=== PATIENT | female | born 1995 | race Caucasian/White ===

== ENCOUNTER 2024-10-31 04:25 | Emergency (ER) | payer OTHER, SELFPAY ==
--- NOTE | ~2024-10-31 | XR_ITS ---
CLINICAL HISTORY: Fecal impaction 1 view abdomen Comparison: None Findings: No pneumoperitoneum or pneumatosis. Moderate fecal retention within the colon. No abnormal calcifications. No acute fractures. IMPRESSION: Moderate colonic fecal retention. No small bowel obstruction or free air. This document has been electronically signed by: Lauro Cheung MD on 10/31/2024 06:38:49
[2024-10-31 04:30] VITALS: BP 122/74; PULSE 84; O2SAT 98
[2024-10-31 04:36] VITALS: BP 131/90; PULSE 83; RESP 16; TEMP 37.2; O2SAT 98; BMI 22.8
[2024-10-31 05:01] LABS: MANUAL DIFF FLAG NO
[2024-10-31 05:02] LABS: Basophils Absolute Auto 0.1 X10*3/uL (0.0-0.2); Basophils Percent Auto 0.5 % (0-2); Eosinophils Absolute Auto 0.7 X10*3/uL (0.0-0.4); Eosinophils Percent Auto 4.6 % (0-4); Hematocrit 48.5 % (37.0-47.0); Hemoglobin 16.2 g/dl (12.0-16.0); Imm Gran Abs Auto 0.05 X10*3/uL (0.00-0.03); Imm Gran Pct Auto 0.4 % (0.0-0.4); Lymphocytes Absolute Auto 2.6 X10*3/uL (1.2-4.9); Lymphocytes Percent Auto 18.4 % (20-40); Mean Corpuscular HGB Conc 33.4 g/dl (31.0-35.0); Mean Corpuscular Hemoglobin 28.5 pg (27.0-33.0); Mean Corpuscular Volume 85.4 fL (80.0-98.0); Mean Platelet Volume 9.4 fL (9.4-12.3); Monocytes Absolute Auto 1.1 X10*3/uL (0.1-1.2); Monocytes Percent Auto 7.5 % (2-11); Neutrophils Absolute Auto 9.7 x10*3/uL (2.0-8.3); Neutrophils Percent Auto 68.6 % (45-73); Platelet Count 360 X10*3/uL (160-400); Red Blood Count 5.68 X10*6/uL (4.20-5.50); Red Cell Distribution Width 14.1 % (11.0-16.0); White Blood Count 14.1 X10*3/uL (4.8-10.8)
--- NOTE | 2024-10-31 05:02 | ED_ITS ---
HPI - Abdominal Pain General Chief Complaint: Abdominal Pain Stated Complaint: ABDOMINAL PAIN Time Seen by Provider: 10/31/24 05:02 Source: patient Mode of arrival: ambulatory Limitations: no limitations History of Present Illness ED Provider: HPI narrative: Patient has chronic constipation comes here for diffuse abdominal discomfort had small bowel movement 2 days no nausea no vomiting no urinary complaints does have back pain also says that history of colitis from constipation once before no blood in his stool no fever no chills Related Data Previous Rx's ?Medication ?Instructions ?Recorded polyethylene glycol 3350 17 17 g PO DAILY #510 grams 10/31/24 gram/dose oral powder (Miralax) sennosides 8.6 mg tablet (Senokot) 8.6 mg PO BEDTIME PRN constipation 10/31/24 #30 tabs Allergies Allergy/AdvReac Type Severity Reaction Status Date / Time No Known Allergies Allergy Unverified 10/31/24 04:39 Review of Systems Review of Systems Yes all other systems are reviewed and are negative [facility] Social History Social History Alcohol intake: current Alcohol intake frequency: holidays/special occasions only Alcohol type: hard liquor Smoked in Last 30 Days: Yes Substance Use Type: Crack/Cocaine Substance Use Frequency: Occasionally Substance Use Frequency Other:: 2 Last Used Substance: Weeks (ago) Advance Directives: No Advance Directives Information Provided: Yes Do you have a plan to hurt others: No Plan Patient : No Physical Exam ED Vital Signs: Vital Signs - 24 hr 10/31/24 04:36 10/31/24 06:50 Temperature 98.9 F 98.9 F Pulse Rate 83 83 Respiratory Rate 16 16 Blood Pressure 131/90 H 131/90 H Pulse Oximetry 98 98 Oxygen Delivery Method Room Air Room Air BMI result Body Mass Index 22.8 Appearance: Alert. Oriented X3. No acute distress. Eyes: No pallor or icterus ENT: Pharynx normal. Oral Mucosa moist Neck: Normal inspection. Neck supple. CVS: Normal heart rate and rhythm. Pulses normal. Respiratory: No respiratory distress. Equal air entry bilateral, no wheezing/rales/rhonchi Abdomen: Soft and mild diffuse tenderness. Bowel sounds are present, no mass palpable, no CVA tenderness Skin: Skin warm and dry. Normal skin color. Normal skin turgor. Extremities: No lower extremity edema. No calf tenderness Neuro: Oriented X 3. No motor deficit. Medical Decision Making Medical Decision Making [facility] Narrative: Patient has diffuse abdominal discomfort with moderate amount of stool with history of constipation will advised to take stool softener follow up as outpatient no focal tenderness no tenderness in right lower quadrant patient has been eating okay no vomiting no fever unlikely appendicitis/ovarian cyst diverticulitis Differential Diagnosis Differential Diagnoses: The differential diagnosis associated with the presentation includes Lab Data [facility] Lab Attestation statement: I reviewed the patient's lab results. 10/31/24 04:57 Labs: Lab Results 10/31/24 10/31/24 Range/Units 04:57 05:49 WBC 14.1 H (4.8-10.8) X10*3/uL RBC 5.68 H (4.20-5.50) X10*6/uL Hgb 16.2 H (12.0-16.0) g/dl Hct 48.5 H (37.0-47.0) % MCV 85.4 (80.0-98.0) fL MCH 28.5 (27.0-33.0) pg MCHC 33.4 (31.0-35.0) g/dl RDW 14.1 (11.0-16.0) % Plt Count 360 (160-400) X10*3/uL MPV 9.4 (9.4-12.3) fL Immature Gran % (Auto) 0.4 (0.0-0.4) % Neut % (Auto) 68.6 (45-73) % Lymph % (Auto) 18.4 L (20-40) % [place] % (Auto) 7.5 (2-11) % Eos % (Auto) 4.6 H (0-4) % Baso % (Auto) 0.5 (0-2) % Lymph # (Auto) 2.6 (1.2-4.9) X10*3/uL [place] # (Auto) 1.1 (0.1-1.2) X10*3/uL Eos # (Auto) 0.7 H (0.0-0.4) X10*3/uL Baso # (Auto) 0.1 (0.0-0.2) X10*3/uL Abs Immat Gran (auto) 0.05 H (0.00-0.03) X10*3/uL Absolute Neuts (auto) 9.7 H (2.0-8.3) x10*3/uL Absolute Nucleated RBC 0.000 (0.0-0.012) X10*3/uL Nucleated RBC % (auto) 0.0 (0.0-0.2) /100WBC Urine Color Yellow Urine Appearance Turbid Urine pH 6.5 (5.0-9.0) Ur Specific [place] 1.020 (1.005-1.025) Urine Protein Negative (Neg-Trace) mg/dL Urine Glucose (UA) Negative (Negative) mg/dL Urine Ketones Negative (Negative) mg/dL Urine Blood Moderate (2+) H (Negative) Urine Nitrite Negative (Negative) Ur Leukocyte Esterase Trace H (Negative) Urine RBC 0-2 (0-2) /HPF Urine WBC 6-10 H (0-5) /HPF Ur Squamous Epith Cells 11-20 (0-2) /HPF Urine Bacteria 1+ (None Seen) Hyaline Casts 0-2 (0-2) /LPF Urine Test NEGATIVE (NEGATIVE) Independent Interpretation I performed an independent interpretation of an: Plain X-Ray Radiology Impression Discussion of test interpretation with radiology: I have reviewed the radiologist's reading. Radiologist Impression: [place] [id number] XRay Report Signed Patient: Henna Johnson MR#: [id number] : 1995 Acct:[id number] Age/Sex: 29 / F ADM Date: 10/31/24 Loc: .ED Attending Dr: Ordering Physician: Uche Henry MD Date of Service: 10/31/24 Procedure(s): XR KUB Accession Number(s): [id number] cc: ITALIA WINSTON MD; Uche Henry MD~ CLINICAL HISTORY: Fecal impaction 1 view abdomen Comparison: None Findings: No pneumoperitoneum or pneumatosis. Moderate fecal retention within the colon. No abnormal calcifications. No acute fractures. IMPRESSION: Moderate colonic fecal retention. No small bowel obstruction or free air. This document has been electronically signed by: Lauro Cheung MD on 10/31/2024 06:38:49 Medications Administered Discontinued Medications Generic Name Dose Route Start Last Admin Trade Name Osito PRN Reason Stop Dose Admin Bisacodyl 10 mg 10/31/24 05:07 10/31/24 05:16 Bisacodyl 5 Mg Tablet.Dr PO 10/31/24 05:08 10 mg ONCE ONE Administration Magnesium Hydroxide 30 ml 10/31/24 05:09 10/31/24 05:16 Milk Of Magnesia 30 Ml Oral.Susp PO 10/31/24 05:10 30 ml NOW STA Administration Discharge Plan Discharge Clinical Impression: Constipation Patient Disposition: Home, Self-Care Instructions: Constipation (ED) Prescriptions: New polyethylene glycol 3350 [Miralax] 17 gram/dose powder 17 g PO DAILY Qty: 510 0RF sennosides [Senokot] 8.6 mg tablet 8.6 mg PO BEDTIME PRN (Reason: constipation) Qty: 30 0RF Interventions: ED Discharge Assessment Last Done: 10/31/24 06:50 Discharge Date/Time: 10/31/24 06:52 Print Language: Togolese
--- OUTSIDE RECORDS SUMMARY | 2024-10-31 05:14 | XMS_ITS | Patient Health Record ---
Author Organization [facility] Address [address] [place] [address] Care Team Providers Care Jack Prizer Name Role Phone Tai Nava Primary Care Provider Aline Nuñez Unavailable [phone] Reason For Referral No Information Plan Of Treatment No Information Insurance Providers Payer Name Payer Address Payer Phone Subscriber Number Group Number Insured Name Patient Relationship to Insured Coverage Start Date Coverage End Date [employer] Danielleem [address] [place] [address] [id number] Henna Johnson Self - patient is the insured
--- OUTSIDE RECORDS SUMMARY | 2024-10-31 05:14 | XMS_ITS ---
Author Organization [facility] Address [address] [place] [address] Care Team Providers Care Manager [employer] Name Role Phone Olivia Warner [phone] ALLERGIES, ADVERSE REACTIONS, ALERTS Substance Code Code System Type Reaction Severity Status Start Date End Date No known allergies RxNorm Other substance allergy () 1 No known non-drug allergies RxNorm Other substance fernando rgy () 1 No known drug allergies RxNorm Other substance allergy () 1 MEDICATIONS Medication Code Code System Start Date Stop Date Route Dosage Directions Fill Instructions Flagyl 087679 RxNorm 04/29/20 21 05/06/20 21 oral 1 Paxlovid (EUA) 6734998 RxNorm 10/17/19 23 023 oral 3 Flagyl 535223 RxNorm 3 023 oral 1 methadone RxNorm 021 BCP RxNorm 04/22/20 fluconazole 19760613 RxNorm 03/25/20 24 oral 1 fluconazole 19760613 RxNorm 10/22/19 oral 1 valacyclovir 491567 RxNorm 03/23/20 24 oral 1 metronidazole 235098 RxNorm 03/25/20 24 vaginal 1 Diflucan 188794 RxNorm 04/29/20 21 021 oral 1 Diflucan 487267 RxNorm 021 021 oral 1 metronidazole 831606 RxNorm 10/25/19 oral 1 Macrobid 048374 RxNorm 3 023 oral 1 amoxicillin 372398 RxNorm 024 oral 1 benzonatate 19730611 RxNorm 022 022 oral 1 ibuprofen RxNorm 10/22/19 25 oral 1 ondansetron 230831 RxNorm 024 oral 1 lidocaine 4920954 RxNorm 03/23/20 24 topical 1 PROBLEMS Problem Name Code Code System Start Date End Date Stat Cervicalgia (723.1, M54.2) 45165489 [facility] 09/21/2020 Inactive Low back pain (724.2, M54.5) 714929287 [facility] 09/21/2020 Inactive Acute tonsillitis, unspecified (463, J03.90) 71736631 [facility] 04/22/2021 In active Unspecified dyspareunia (625.0, N94.10) 61787263 [facility] 04/22/2021 Inactive Candidal stomatitis (112.0, B37.0) 16617770 [facility] 08/31/2021 Inactive Viral infection, unspecified (B34.9) 67408494 [facility] 11/18/2021 Inactive Headache, unspecified (R51.9) [facility] 11/20/2021 Inactive COVID-19, Contact with and (suspected) exposure to (Z20.822) 611437167 [facility] 04/01/2022 Inactive Contact with and (suspected) exposure to other viral communicable diseases (Z20.828) [facility] 04/03/2022 Inactive Acute pharyngitis, unspecified (J02.9) [facility] 04/03/2022 Inactive Sprain of other part of right wrist and hand, initial encounter (S63.8X1A) 710135013 [facility] 05/03/2022 Inactive COVID-19, Screening Encounter (Z11.52) 096142689 [facility] 09/01/2022 Inactive Influenza A, Confirmed (J09.x2) 523295410889244 [facility] 09/01/2022 Inactive Cough, unspecified (R05.9) [facility] 09/03/2022 Inactive COVID-19, confirmed by laboratory testing (U07.1) 829279234 [facility] 10/17/2022 I nactive Fever, unspecified (R50.9) [facility] 10/22/2022 Inactive Hematuria, unspecified 76017656 [facility] 12/06/2022 Resolved Acute vaginitis 161279740 [facility] 12/09/2022 Reso lved Encounter for test, result negative (Z32.02) [facility] 12/09/2022 Inactive Pharyngitis, Viral 618142854 [facility] 01/24/2023 R esolved Acute pharyngitis, unspecified 924135009 [facility] 08/25/2023 Inactive Acute upper respiratory infection, unspecified 703302301 [facility] 11/10/2023 Resol jo Other specified disorders of the skin and subcutaneous tissue 04630531 [facility] 03/23/2024 Inactive Nausea with vomiting, unspecified 52755229 [facility] 07/25/2024 Inactive Streptococcal pharyngitis 11158891 [facility] 07/25/2024 Inactive Acute cough 95465490 [facility] 07/31/2024 Inactiv e Other ovarian cyst, unspecified side 13226039 [facility] Active Acute vaginitis 76623768 [facility] 10/22/2024 Acti ve Low back pain, unspecified 741164044 [facility] 10/22/2024 Active ENCOUNTERS Encounter Diagnosis Code Code System Date Stat Acute vaginitis 93418661 [facility] 10/22/2024 Active Low back pain, unspecified 897052223 [facility] 10/22/2024 Active IMMUNIZATIONS * None VITAL SIGNS Code Code System Vitals Name Date Value and Un its 8462-4 [facility] Blood Pressure-Diastolic 10/22/2024 85 mmHg 8480-6 [facility] Blood Pressure-Systolic 10/22/2024 1 35 mmHg 8867-4 [facility] Heart Rate 10/22/2024 100 /min 9279-1 [facility] Respiratory Rate 10/22/2024 16 /min 8310-5 [facility] Body Temperature 10/22/2024 98.6 F 79173-0 [facility] Oxygen Saturation 10/22/2024 98 % SOCIAL HISTORY * None PROCEDURES * None RESULTS Test Code Code System Description Result Value Date Ref erence Range [facility] Glucose Negative 10/22/2024 [facility] Bilirubin Negative 10/22/2024 [facility] Ketone Negative 10/22/2024 [facility] Specific [place] 1.68137 10/22/2024 [facility] Blood Negative 10/22/2024 [facility] pH 8.56786 10/22/2024 [facility] Protein Trace 10/22/2024 [facility] Urobilinogen 1.81718 E.U./dL 10/22/2024 [facility] Nitrite Negative 10/22/2024 [facility] Leukocytes Negative 10/22/2024 [facility] Color Dark yellow 10/22/2024 [facility] Clarity Cloudy 10/22/2024 [facility] hCG Negative 10/22/2024 88457-8 [facility] SURESWAB(R) ADV BACTERIAL VAGINOSIS (BV), TMA POSITIVE 10/22/2024 NEGATIVE 17878-4 [facility] DEENA SPECIES DETECTED 10/22/2024 NOT DETECTED 59165-1 [facility] DEENA GLABRATA NOT DETECTED 10/22/2024 NOT DETECTED 97129-0 [facility] TRICHOMONAS VAGI NALIS (TV), TMA NOT DETECTED 10/22/2024 NOT DETECTED 97525-1 [facility] CHLAMYDIA TRACHO MATIS RNA, TMA, UROGENITAL NOT DETECTED 10/22/2024 NOT DETECTED 61535-4 [facility] NEISSERIA GONORR HOEAE RNA, TMA, UROGENITAL NOT DETECTED 10/22/2024 NOT DETECTED 630-4 [facility] CULTURE, URINE, ROUTINE SEE NOTE 10/22/2024 MEDICAL EQUIPMENT * Patient has no history of implantable devices ASSESSMENT Assessment We will contact you with the results of the urine culture and vaginal swab.Take the ibuprofen as needed for pain in the back. Heat and gentle massage can be helpful.Take the fluconazole as prescribed.If you develop a fever or worsening symptoms please be reevaluated TREATMENT PLAN Type Description Date MEDICATION Take 150 mg tablet 10/22/2024 MEDICATION Take 600 mg tablet 10/22/2024 APPOINTMENT If not feeling silvestre r in 3 day(s), please see your primary care physician. If you do not have a primary care physician, please return to this clinic. 10/22/2024 Labs Tests Test Name Code Code System Date [facility] hCG Chemistry Pregn nayely Test, Qualitative 60919 CPT 10/22/2024 [facility] Urinalysis, automat ed, without microscopy 67810 CPT 10/22/2024 SURESWAB(R) ADVANCED VAGINIT IS PLUS, TMA 95972;53432;38922;92211;8766 1 CPT 10/22/2024 CULTURE, URINE, ROUTINE 74969;60621 CPT 10/22 GOALS * None HEALTH CONCERNS * No Health Concerns FUNCTIONAL AND COGNITIVE STATUS * None CONSULTATION NOTES * None DISCHARGE SUMMARY NOTES * None HISTORY AND PHYSICAL NOTES * Patient: ALEXANDER BERRIOS, Sex: F (ID# [id number]) Date of : 1995 (29 years) Visit on 10/22/2024 (Log# [id number]) Historian: Self Triage Notes: pt complains of LB pain on the R side x2 days, reports hx of UTI. Reports vaginal discharge x7 days. Reports new sexual partner x1 month ago. History of Present Illness: 29-year-old female presenting for evaluation of right-sided back pain over the past 5 days or so. Pain is constant, aching, worse with movement, not pleuritic. She also reports having some urinary symptoms described as her urine looking cloudy and sometimes feeling some dysuria. She lastly has noticed some vaginal discharge that is thick white with some itchiness. New sexual partner within the past month. No fevers vomiting diarrhea. Was treated for colitis about 6 weeks ago and treated with antibiotics. Complaint: The patient presents with a chief complaint of constant (but worse at times) back pain of the rightlower back since Oct 20, 2024. It has the following quality: dull. Context - Initial History: The patient reports it was not the result of an injury, which had a sudden onset. The patient has had a similar problem in the past. The patient reports no radiation of pain. Review of Systems: The patient complains of the following recent symptoms: : vaginal discharge Musculoskeletal: back pain: See HPI The patient denies the following recent symptoms: Constitutional: denies fever Neurological: denies numbness/tingling Allergies: patient specifies no known allergies Medications: patient specifies no active medications Problem List: Other ovarian cyst, unspecified side (status Active) Surgeries: Head/Neck/Breast surgery: Surgery, rhinoplasty. Abdominal/Pelvic surgery: Surgery, d&c. Social History: Tobacco Use: Current every day smoker. Street / Unprescribed Drugs: Marijuana use reported, Cocaine use reported, Rarely (less than once per month). Alcohol: denies Family History: patient specifies no conditions Preventive Measures: patient specifies all up-to-date Vitals: 12:25 PM (10/22/2024)Temperature: 98.6 ?F (Tympanic [R]), Pulse: 100 BPM, BP: 135/85, Respirations:16/min, O2 Saturation: 98%, O2 Delivery: RA, Last Menses: Irregular, Menses Notes: pt reports irregular cycle, last menses ~45 days agoFirst entered 10/22/2024 12:25 by Olivia Warner Physical Exam: The following exam elements were documented to be normal: Psychiatric: oriented and alert. General: Well appearing, no acute distress HEENT: - NC/AT - no conjunctival injection or scleral icterus Abdomen: soft, nd ,nt Back: No CVAT MSK: Moving all extremities, tender along the right paralumbar muscles Neuro: Awake and alert x3, no focal deficits Labs: Cl[facility] hCG Chemistry Test, Qualitative Code(s): 71795 Results hCG: Negative [facility] Clinitek Status+ (510169), [facility]: [id number], Expiry: [id number]: Order entered 10/22/2024 12:27 by Olivia Warner Under supervision of ordering provider TAI WILSON PA-C Completed 10/22/2024 12:27 by Olivia Warner Reviewed 10/22/2024 12:44 by Tai Wilson Urinalysis, automated, without microscopy Code(s): 23003 Results Glucose: Negative Bilirubin: Negative Ketone: Negative Specific [place]: 1.55767 : 1.020 Blood: Negative pH: 8.45708 : 8.5 Protein: Trace (Alpha Abnormal) Urobilinogen: 1 E.U./dL: 1.0 Nitrite: Negative Leukocytes: Negative Color: Dark yellow Clarity: [facility] (824485), [facility]: 789844, Expiry: 2025-05Notes: Order entered 10/22/2024 12:27 by Olivia Warner Under supervision of ordering provider TAI WILSON PA-C Completed 10/22/2024 12:27 by Olivia Warner Reviewed 10/22/2024 12:37 by Tai Wilson(R) ADVANCED VAGINITIS PLUS, TMA Code(s): 80723, 52341, 45357, 13322, 30421 Results SURESWAB(R) ADV BACTERIAL VAGINOSIS (BV), TMA: POSITIVE (Alpha Abnormal) DEENA SPECIES: DETECTED (Alpha Abnormal) DEENA GLABRATA: NOT DETECTED TRICHOMONAS VAGINALIS (TV), TMA: NOT DETECTED CHLAMYDIA TRACHOMATIS RNA, TMA, UROGENITAL: NOT DETECTED NEISSERIA GONORRHOEAE RNA, TMA, UROGENITAL: NOT DETECTED Ordered 10/22/2024 12:44 by Tai Wilson Completed 10/22/2024 12:47 by Olivia Warner Reviewed 10/25/2024 08:36 by Milly Zavaleta Code(s) suppressed 10/22/2024 12:44 by Tai Wilson CULTURE, URINE, ROUTINE Code(s): 46495, 07461 Results CULTURE, URINE, ROUTINE: SEE NOTE Ordered 10/22/2024 12:44 by Tai Wilson Completed 10/22/2024 12:47 by Olivia Warner Reviewed 10/25/2024 08:36 by Milly Zavaleta Code(s) suppressed 10/22/2024 12:44 by Tai Wilson Diagnoses: Acute vaginitis (N76.0) Low back pain, unspecified (M54.50) Medication Orders: Prescribed: fluconazole 150 mg tablet; Take 1 Tablet (oral) every 3 days for 6 Days; Total Qty: 2 (two) Tablet; 0 refill(s); Substitutions allowed; Earliest Fill Date: 10/22/2024ePrescribed at 12:46 PM on 10/22/2024 by JESSICA Oconnor-CPres[id number] (P: [phone] F: [phone]) [address] [place], [address] Prescribed: ibuprofen 600 mg tablet; Take 1 Tablet (oral) every 6 hours for 7 Days (PRN - Pain); Total Qty: 28 (twenty-eight) Tablet; 0 refill(s); Substitutions allowed; Earliest Fill Date: 10/22/2024ePrescribed at 12:46 PM on 10/22/2024 by JESSICA Oconnor-CPres[id number] (P: [phone] F: [phone]) [address] [place], [address] Plan: If not feeling better in 3 day(s), please see your primary care physician. If you do not have a primary care physician, please return to this clinic. Patient Fit for duty with the following restrictions as of 10/23/2024 Restrictions in effect until 10/29/2024. Notes: No lifting greater than 20 pounds. We will contact you with the results of the urine culture and vaginal swab. Take the ibuprofen as needed for pain in the back. Heat and gentle massage can be helpful. Take the fluconazole as prescribed. If you develop a fever or worsening symptoms please be reevaluated Visit discharged at 10/22/2024 12:46:44 PM by Tai Wilson PA-C Signed electronically by Tai Wilson PA-C on 10/22/2024 12:58:06 PM Chart Addendums Addendum Last Updated ByLast Updated [email or web address] 8:37:52 AMSure swab positive for BV and candidiasis. See virtual encounter for treatment for BV. Received treatment for candidiasis in clinic. Urine culture is negative.[email or web address] 1:16:40 PMLeft a message for trang [email or web address] 6:43:23 PMI talked to the patient. IMAGING NOTES * None LABORATORY REPORT NARRATIVE NOTES * None PATHOLOGY REPORT NARRATIVE NOTES * None PROGRESS NOTES * None
[2024-10-31] MEDS: bisacodyL 5 MG TABLET.DR 10 MG PO (05:16)
[2024-10-31] MEDS: Milk of Magnesia 30 ML ORAL.SUSP PO (05:16)
--- NOTE | 2024-10-31 05:34 | PC.NURSE ---
pt being difficult with letting techs and rn take labs from pt. pt states remove it take it out when you have hardly even touched the pt. pt states she wants a min. pt has also not given a urine sample yet. provider made aware.
[2024-10-31 05:55] LABS: Appearance Urine Turbid; Color Urine Yellow; Glucose Urine UA Negative (Negative); Leukocyte Esterase Urine Trace (Negative); Nitrite Urine Negative (Negative); PH 6.5 (5.0-9.0); UMIC TRIGGER UACC YES; Urine Blood Moderate (2+) (Negative); Urine Ketones Negative (Negative); Urine Protein Negative (Neg-Trace)
[2024-10-31 05:56] LABS: UPreg QC Valid YES; Urine Pregnancy NEGATIVE (NEGATIVE)
--- NOTE | 2024-10-31 05:57 | PC.NURSE ---
Dr Scott is aware of the lab undrawn at this time and it is ok. pt ambulated to the bathroom with steady gait. friend at bedside. pt just wants to sleep.
[2024-10-31 06:07] LABS: Bacteria Urine 1+ (None Seen); Hyaline Casts Urine 0-2 /LPF (0-2); RBC Urine 0-2 /HPF (0-2); UACC Culture Trigger YES
[2024-10-31 06:50] VITALS: BP 131/90; PULSE 83; RESP 16; TEMP 37.2; O2SAT 98
== END 2024-10-31 06:52 | disposition home or self-care (01) ==
PROVIDERS: Emergency Provider Internal Medicine; PCP Internal Medicine
DX: K59.00 Constipation, unspecified (principal); R10.9 Unspecified abdominal pain
CPT/HCPCS: 36415; 74018; 81001; 81025; 85025; 87086; 99283; 99284

== ENCOUNTER → 2024-10-31 05:07 | Outpatient (BNV) | payer OTHER, SELFPAY | PROVIDERS: Emergency Provider Internal Medicine; PCP Internal Medicine; Visit Provider Radiology Vascular & Interventional Radiology | DX: K56.41 Fecal impaction (principal) | CPT/HCPCS: 74018 ==